=== PATIENT | male | born 1955 | race Caucasian/White ===

== ENCOUNTER 2018-02-28 18:31 | Inpatient (IN) | payer OTHER ==
[~2018-02-28] VITALS: Ht 177.8 cm; Wt 100.8 kg
[2018-02-28] MEDS ORDERED: DEXTROSE 50%, 50ML SYRINGE IVPush ONE (19:00)
[2018-02-28] MEDS ORDERED: INSULIN REGULAR 100 UNITS/ML, 3ML VIAL IVPush ONE (19:00)
[2018-02-28] MEDS ORDERED: SODIUM CHLORIDE FLUSH 10ML SYR IVF ONE ×2 (19:00)
[2018-02-28] MEDS ORDERED: SODIUM POLY SULFONATE UDC 15 GM/60 ML PO ONE (19:00)
[2018-02-28 19:20] LABS: BASOPHILS # (AUTO) 0.07 x10^3/uL (0-0.1); BASOPHILS % (AUTO) 1 % (0-1); EOSINOPHILS # (AUTO) 0.44 x10^3/uL (0-0.4); EOSINOPHILS % (AUTO) 5 % (1-7); LYMPHOCYTES # (AUTO) 1.45 x10^3/uL (1-3.4); LYMPHOCYTES % (AUTO) 17 % (22-44); MD NO; MEAN CORPUSCULAR HEMOGLOBIN 29.5 pg (27.5-34.5); MEAN CORPUSCULAR VOLUME 86.8 fL (81-97); MEAN PLATELET VOLUME 7.1 fL (7.4-10.4); MONOCYTES # (AUTO) 0.81 x10^3/uL (0.2-0.8); MONOCYTES % (AUTO) 10 % (2-9); NEUTROPHILS # (AUTO) 5.77 x10^3/uL (1.8-6.8); NEUTROPHILS % (AUTO) 68 % (42-75); PLATELET COUNT 457 x10^3/uL (130-400); RED BLOOD COUNT 3.42 x10^6/uL (4.38-5.82); RED CELL DISTRIBUTION WIDTH 12.9 % (9.4-14.8)
[2018-02-28 19:29] LABS: ALANINE AMINOTRANSFERASE 21 U/L (12-78); ALBUMIN 3.7 g/dL (3.4-5.0); ANION GAP 14 mmol/L (5-15); CALCIUM 9.4 mg/dL (8.5-10.1); CHLORIDE 103 mmol/L (98-107)
[2018-02-28 19:31] LABS: ALKALINE PHOSPHATASE 83 U/L (45-117); BILIRUBIN,TOTAL 0.2 mg/dL (0.2-1.0)
--- NOTE | 2018-02-28 19:34 | NUR ---
CRITICAL BUN 116, CR 10.6
--- NOTE | 2018-02-28 19:37 | NUR ---
DR CERVANTES AWARE
--- NOTE | 2018-02-28 20:00 | NUR ---
PT GIVEN URINE CUP TO PROVIDE URINE SAMPLE. FAMILY AT BEDSIDE. PT AWARE HE IS TO BE ADMITED.
[2018-02-28] MEDS ORDERED: VENL75CA PO (20:01)
[2018-02-28] MEDS ORDERED: AMLODIPINE PO (20:01)
[2018-02-28] MEDS ORDERED: SIMV10TA3 PO (20:01)
[2018-02-28] MEDS ORDERED: ATEN100T PO (20:01)
[2018-02-28] MEDS ORDERED: ASPI-496 PO (20:01)
[2018-02-28] MEDS ORDERED: DEXTROSE 50%, 50ML SYRINGE ONE (20:50)
[2018-02-28] MEDS ORDERED: INSULIN REGULAR 100 UNITS/ML, 3ML VIAL ONE (20:52)
[2018-02-28] MEDS ORDERED: ONDANSETRON 2MG/ML, 2ML IVPush PRN (21:00)
[2018-02-28] MEDS ORDERED: hydrALAzine 20 MG/ML, 1ML IVPush PRN (21:00)
[2018-02-28] MEDS ORDERED: BISACODYL 10 MG SUPP PR PRN (21:00)
[2018-02-28] MEDS ORDERED: ACETAMINOPHEN 325 MG TABLET PO PRN (21:00)
--- NOTE | 2018-02-28 21:04 | NUR ---
REPORT TO CA HAWTHORNE. IV STARTED. BEDSIDE US DONE. PT ON CARDIAC AND VITALS MONITORS. DISCUSSED ORDERED MEDS WITH HOSPITALIST. PER HOSPITALIST, OKAY TO HOLD INSULIN AND DEXTROSE AT THIS TIME. URINE SAMPLE OBTAINED AND SENT TO LAB.
--- NOTE | 2018-02-28 21:15 | NUR ---
PT TO CT
[2018-02-28 21:26] LABS: MICROSCOPIC AUTO
[2018-02-28 21:29] LABS: CREATININE,URINE RANDOM 55.2 mg/dL; CULTURE INDICATED? YES
--- NOTE | 2018-02-28 21:40 | NUR ---
KERN INSERTED PER ORDER, PT MEDICATED PER ORDER. PT GOING UP NOW
[2018-02-28 21:49] LABS: HCT (SEDRATE) 30.1 % (39.2-51.8)
[2018-02-28 21:54] VITALS: BP 189/102
[2018-02-28] MEDS: SODIUM CHLORIDE 0.9% 1,000 ML IV SCH (22:37)
[2018-02-28 23:14] VITALS: BP 177/98
[2018-03-01 01:20] VITALS: BP 154/75
[2018-03-01 05:16] LABS: BASOPHILS # (AUTO) 0.07 x10^3/uL (0-0.1); BASOPHILS % (AUTO) 1 % (0-1); EOSINOPHILS # (AUTO) 0.33 x10^3/uL (0-0.4); EOSINOPHILS % (AUTO) 3 % (1-7); LYMPHOCYTES # (AUTO) 1.42 x10^3/uL (1-3.4); LYMPHOCYTES % (AUTO) 14 % (22-44); MD NO; MEAN CORPUSCULAR HEMOGLOBIN 29.6 pg (27.5-34.5); MEAN CORPUSCULAR HGB CONC 34.1 g/dL (33.2-36.2); MEAN CORPUSCULAR VOLUME 86.6 fL (81-97); MEAN PLATELET VOLUME 6.9 fL (7.4-10.4); MONOCYTES # (AUTO) 0.86 x10^3/uL (0.2-0.8); MONOCYTES % (AUTO) 9 % (2-9); NEUTROPHILS % (AUTO) 73 % (42-75); PLATELET COUNT 455 x10^3/uL (130-400); RED BLOOD COUNT 3.38 x10^6/uL (4.38-5.82); RED CELL DISTRIBUTION WIDTH 13.2 % (9.4-14.8)
[2018-03-01 05:28] LABS: CHLORIDE 107 mmol/L (98-107)
[2018-03-01 05:34] LABS: ALANINE AMINOTRANSFERASE 19 U/L (12-78); ALBUMIN 3.5 g/dL (3.4-5.0); ALKALINE PHOSPHATASE 76 U/L (45-117); ANION GAP 12 mmol/L (5-15); BILIRUBIN,TOTAL 0.3 mg/dL (0.2-1.0); CALCIUM 9.4 mg/dL (8.5-10.1); TOTAL PROTEIN 7.8 g/dL (6.4-8.2)
[2018-03-01] MEDS: SODIUM CHLORIDE 0.9% 1,000 ML IV SCH ×2 (05:57→11:58)
[2018-03-01 07:16] VITALS: BP 158/93
[2018-03-01] MEDS ORDERED: LIDOCAINE-MPF 1%, 5ML ONE (08:05)
[2018-03-01] MEDS ORDERED: FLUMAZENIL 0.1 MG/1 ML, 5ML ONE (08:07)
[2018-03-01] MEDS ORDERED: NALOXONE 1 MG/ML, 2ML ONE (08:07)
[2018-03-01] MEDS ORDERED: MIDAZOLAM 1 MG/ML, 5ML ONE (08:07)
[2018-03-01] MEDS ORDERED: FENTANYL PF 100 MCG/2ML ONE (08:07)
[2018-03-01] MEDS ORDERED: CEFAZOLIN PMX 1GM/50ML 50 ML IV ONE (09:00)
[2018-03-01] MEDS ORDERED: MELATONIN 3 MG TABLET PO PRN (12:30)
[2018-03-01 14:25] VITALS: BP 149/88
[2018-03-01] MEDS ORDERED: AMLODIPINE 5 MG TABLET PO ONE (18:00)
[2018-03-01] MEDS: SODIUM BICARBONATE 8.4% 75 MEQ in SODIUM CHLORIDE 0.45% 1,000 ML IV SCH (18:42)
[2018-03-01] MEDS: SIMVASTATIN 10 MG TABLET PO SCH (20:30)
[2018-03-01 21:56] VITALS: BP 148/84
[2018-03-01] MEDS ORDERED: FLUT1BLS INH (22:21)
[2018-03-02 03:05] VITALS: BP 149/90
[2018-03-02 06:42] LABS: CLOSTRIDIUM DIFFICILE ANTIGEN NEGATIVE; CLOSTRIDIUM DIFFICILE TOXIN NEGATIVE (Negative)
[2018-03-02 06:54] LABS: BASOPHILS # (AUTO) 0.06 x10^3/uL (0-0.1); BASOPHILS % (AUTO) 1 % (0-1); EOSINOPHILS # (AUTO) 0.25 x10^3/uL (0-0.4); EOSINOPHILS % (AUTO) 3 % (1-7); LYMPHOCYTES # (AUTO) 1.47 x10^3/uL (1-3.4); LYMPHOCYTES % (AUTO) 17 % (22-44); MD NO; MEAN CORPUSCULAR HEMOGLOBIN 29.1 pg (27.5-34.5); MEAN CORPUSCULAR HGB CONC 33.7 g/dL (33.2-36.2); MEAN CORPUSCULAR VOLUME 86.4 fL (81-97); MEAN PLATELET VOLUME 7.4 fL (7.4-10.4); MONOCYTES # (AUTO) 0.88 x10^3/uL (0.2-0.8); MONOCYTES % (AUTO) 10 % (2-9); NEUTROPHILS # (AUTO) 5.85 x10^3/uL (1.8-6.8); NEUTROPHILS % (AUTO) 69 % (42-75); PLATELET COUNT 409 x10^3/uL (130-400); RED BLOOD COUNT 3.37 x10^6/uL (4.38-5.82); RED CELL DISTRIBUTION WIDTH 13.2 % (9.4-14.8)
[2018-03-02 07:07] LABS: % IRON SATURATION 32 % (20-55); ALBUMIN 3.4 g/dL (3.4-5.0); ANION GAP 12 mmol/L (5-15); CALCIUM 9.1 mg/dL (8.5-10.1); CHLORIDE 106 mmol/L (98-107); CREATININE 8.85 mg/dL (0.7-1.3); IRON LEVEL 81 mcg/dL (65-175); TOTAL IRON BINDING CAPACITY 256 mcg/dL (250-450)
[2018-03-02 08:17] VITALS: BP 165/93
[2018-03-02] MEDS: AMLODIPINE 5 MG TABLET PO SCH (08:26)
[2018-03-02] MEDS: VENLAFAXINE 75 MG CAP ER PO SCH (08:26)
[2018-03-02] MEDS: SODIUM BICARBONATE 8.4% 75 MEQ in SODIUM CHLORIDE 0.45% 1,000 ML IV SCH (08:27)
[2018-03-02] MEDS ORDERED: AMLODIPINE 5 MG TABLET PO SCH (09:00)
[2018-03-02 15:34] VITALS: BP 140/83
[2018-03-02 19:25] VITALS: BP 166/90
[2018-03-02] MEDS: SIMVASTATIN 10 MG TABLET PO SCH (20:27)
[2018-03-02] MEDS: SODIUM CHLORIDE 0.9% 1,000 ML IV SCH (23:55)
[2018-03-03 01:55] VITALS: BP 158/84
[2018-03-03 07:53] VITALS: BP 167/93
[2018-03-03] MEDS: AMLODIPINE 5 MG TABLET PO SCH (08:16)
[2018-03-03] MEDS: VENLAFAXINE 75 MG CAP ER PO SCH (08:16)
[2018-03-03 09:00] LABS: BASOPHILS # (AUTO) 0.04 x10^3/uL (0-0.1); BASOPHILS % (AUTO) 1 % (0-1); EOSINOPHILS # (AUTO) 0.39 x10^3/uL (0-0.4); EOSINOPHILS % (AUTO) 5 % (1-7); LYMPHOCYTES # (AUTO) 1.64 x10^3/uL (1-3.4); LYMPHOCYTES % (AUTO) 22 % (22-44); MD NO; MEAN CORPUSCULAR HEMOGLOBIN 28.3 pg (27.5-34.5); MEAN CORPUSCULAR HGB CONC 32.7 g/dL (33.2-36.2); MEAN CORPUSCULAR VOLUME 86.5 fL (81-97); MEAN PLATELET VOLUME 6.8 fL (7.4-10.4); MONOCYTES # (AUTO) 0.61 x10^3/uL (0.2-0.8); MONOCYTES % (AUTO) 8 % (2-9); NEUTROPHILS # (AUTO) 4.68 x10^3/uL (1.8-6.8); NEUTROPHILS % (AUTO) 64 % (42-75); PLATELET COUNT 393 x10^3/uL (130-400); RED BLOOD COUNT 3.32 x10^6/uL (4.38-5.82); RED CELL DISTRIBUTION WIDTH 13.3 % (9.4-14.8)
[2018-03-03 09:11] LABS: ANION GAP 10 mmol/L (5-15); CALCIUM 8.6 mg/dL (8.5-10.1); CHLORIDE 105 mmol/L (98-107)
[2018-03-03 09:12] LABS: CREATININE 7.53 mg/dL (0.7-1.3)
[2018-03-03] MEDS: SODIUM CHLORIDE 0.9% 1,000 ML IV SCH (12:19)
[2018-03-03 13:57] VITALS: BP 135/73
[2018-03-03 18:46] VITALS: BP 152/75
[2018-03-03] MEDS: SIMVASTATIN 10 MG TABLET PO SCH (20:09)
[2018-03-04] MEDS: SODIUM CHLORIDE 0.9% 1,000 ML IV SCH ×2 (00:52→17:03)
[2018-03-04 02:07] VITALS: BP 139/91
[2018-03-04] MEDS: VENLAFAXINE 75 MG CAP ER PO SCH (07:53)
[2018-03-04] MEDS: AMLODIPINE 5 MG TABLET PO SCH (07:53)
[2018-03-04 08:00] VITALS: BP 161/91
[2018-03-04 09:25] LABS: ANION GAP 9 mmol/L (5-15); CALCIUM 8.2 mg/dL (8.5-10.1); CHLORIDE 108 mmol/L (98-107); CREATININE 6.25 mg/dL (0.7-1.3)
[2018-03-04 12:26] VITALS: BP 146/88
[2018-03-04 13:03] VITALS: BP 146/88
[2018-03-04] MEDS: SIMVASTATIN 10 MG TABLET PO SCH (20:05)
[2018-03-04 20:35] VITALS: BP 165/99
[2018-03-05 01:48] VITALS: BP 136/78
[2018-03-05 05:35] LABS: ANION GAP 11 mmol/L (5-15); CALCIUM 8.2 mg/dL (8.5-10.1); CHLORIDE 111 mmol/L (98-107); CREATININE 5.71 mg/dL (0.7-1.3)
[2018-03-05] MEDS: SODIUM CHLORIDE 0.9% 1,000 ML IV SCH ×2 (05:48→17:41)
[2018-03-05 07:26] VITALS: BP 135/83
[2018-03-05] MEDS: AMLODIPINE 5 MG TABLET PO SCH (09:00)
[2018-03-05] MEDS: VENLAFAXINE 75 MG CAP ER PO SCH (09:00)
[2018-03-05] MEDS: TAMSULOSIN 0.4 MG CAP.ER.24H PO SCH (09:00)
[2018-03-05 12:43] VITALS: BP 145/79
[2018-03-05] MEDS ORDERED: LIDOCAINE-MPF 1%, 5ML ONE (16:33)
[2018-03-05 19:07] VITALS: BP 162/89
[2018-03-05] MEDS: SIMVASTATIN 10 MG TABLET PO SCH (20:25)
[2018-03-06 01:12] VITALS: BP 161/78
[2018-03-06 07:05] VITALS: BP 158/96
[2018-03-06] MEDS: VENLAFAXINE 75 MG CAP ER PO SCH (09:10)
[2018-03-06] MEDS: TAMSULOSIN 0.4 MG CAP.ER.24H PO SCH (09:10)
[2018-03-06] MEDS: AMLODIPINE 5 MG TABLET PO SCH (09:10)
[2018-03-06] MEDS: SODIUM CHLORIDE 0.9% 1,000 ML IV SCH (09:14)
[2018-03-06 09:15] LABS: ANION GAP 9 mmol/L (5-15); CALCIUM 8.7 mg/dL (8.5-10.1); CHLORIDE 110 mmol/L (98-107); CREATININE 4.66 mg/dL (0.7-1.3)
[2018-03-06] MEDS ORDERED: TAMS-11 PO (11:14)
[2018-03-06] MEDS ORDERED: AMLO-150 PO (11:14)
== END 2018-03-06 14:55 | disposition home or self-care (01) | DRG 699 ==
LOC: ED 19:54 → EDIP 19:59 → 5SO 21:48 → 4WST 03-02 06:25 → DCLOUNGE 03-06 14:25
PROVIDERS: ADMIT Internal Medicine; ATTEND Internal Medicine
PROC: 02HV33Z Insertion of Infusion Device into Superior Vena Cava, Percutaneous Approach (ICD-10-PCS; principal; 2018-03-01)
PROC: B5181ZA Fluoroscopy of Superior Vena Cava using Low Osmolar Contrast, Guidance (ICD-10-PCS; 2018-03-01)
PROC: B548ZZA Ultrasonography of Superior Vena Cava, Guidance (ICD-10-PCS; 2018-03-01)
DX: N32.0 Bladder-neck obstruction (principal); N17.9 Acute kidney failure, unspecified; E87.2 Acidosis; N13.30 Unspecified hydronephrosis; B35.1 Tinea unguium; D63.1 Anemia in chronic kidney disease; E78.5 Hyperlipidemia, unspecified; E87.5 Hyperkalemia; F32.9 Major depressive disorder, single episode, unspecified; I12.9 Hypertensive chronic kidney disease with stage 1 through stage 4 chronic kidney disease, or unspecified chronic kidney disease; N18.9 Chronic kidney disease, unspecified; Z80.0 Family history of malignant neoplasm of digestive organs; Z82.49 Family history of ischemic heart disease and other diseases of the circulatory system; Z82.5 Family history of asthma and other chronic lower respiratory diseases; Z83.3 Family history of diabetes mellitus; Z23 Encounter for immunization
CPT/HCPCS: 36415; 36558; 36589; 51702; 71045; 74176; 76770; 76937; 77001; 78070; 80048; 80053; 80069; 81001; 82306; 82436; 82570; 82728; 83540; 83550; 83735; 83970; 84100; 84133; 84300; 84550; 85025; 85651; 87086; 87324; 90656; 93005; 99156; 99157; C1894; G0103; G0378; J2250; J2405; J3010; A9500; C1750; C1769; C9898; J0360; J1642; J2310; J7030